=== PATIENT | male | born 2000 | race Caucasian/White ===

== ENCOUNTER 2021-08-15 15:03 | Outpatient (REF) | payer OTHER, SELFPAY ==
[2021-08-16 13:03] LABS: H Pylori Breath Test Negative (Negative)
== END 2021-08-15 15:04 | disposition home or self-care (01) ==
LOC: HO.LNP 15:03
PROVIDERS: Visit Provider Nurse Practitioner Family
DX: K21.9 Gastro-esophageal reflux disease without esophagitis (principal); K80.20 Calculus of gallbladder without cholecystitis without obstruction; K59.01 Slow transit constipation; R11.15 Cyclical vomiting syndrome unrelated to migraine
CPT/HCPCS: 83013

== ENCOUNTER → 2021-08-24 08:46 | Outpatient (REF) | payer OTHER, SELFPAY ==
--- NOTE | ~2021-08-24 | NM_ITS ---
EXAMINATION: BILIARY TRACT IMAGING STUDY WITH CCK CLINICAL INFORMATION: A 20-year-old male with abdominal pain. COMPARISON: None. TECHNIQUE: Serial gamma scintillation camera images were obtained over the abdomen for a total observation period of 60 minutes following the intravenous administration of 5 mCi Tc-99m Mebrofenin. FINDINGS: There is good concentration of activity in the liver by 5 minutes post injection. Biliary activity is visualized by 10 minutes. The gallbladder is well visualized by 20 minutes. Small bowel is well visualized by 10 minutes. At 60 minutes post radiopharmaceutical injection, a 30-minute infusion of 1.4 micrograms Sincalide was then begun and an additional 40 minutes of images were obtained. There is good emptying of the gallbladder. By the end of the study there is good clearance of activity from the liver and visualization of diffuse small bowel activity. The calculated gallbladder ejection fraction is 47% (normal gallbladder ejection fraction is greater than 35%) at 10 minutes. NM/NM hepatobiliary w pharm IMPRESSION: Visualization of the gallbladder is evidence of a patent cystic duct and strong evidence against the diagnosis of acute cholecystitis. The common bile duct is patent. Gallbladder emptying and ejection fraction are normal. Liver function appears normal.
== END ==
LOC: HO.NUCMED 08:46
PROVIDERS: Visit Provider Nurse Practitioner Family
DX: R11.10 Vomiting, unspecified (principal); K80.20 Calculus of gallbladder without cholecystitis without obstruction; K21.9 Gastro-esophageal reflux disease without esophagitis
CPT/HCPCS: 78227; A9537; J2805

== ENCOUNTER 2021-09-25 10:28 | Day surgery (SDC) | payer OTHER, SELFPAY ==
--- NOTE | 2021-09-20 10:09 | HO.ANESPROP2 ---
Documented by User: Danelle Mccoy NP 09/20/21 10:10 HPI - Anesthesia Eval Consult details Narrative: 20yo M for Upper Endoscopy and Colonoscopy [facility] Past Medical History Medical History GERD (gastroesophageal reflux disease) Rectal bleeding Social History Social History Patient Tobacco Use Status: Never used Tobacco Use of substances other than those prescribed or required for medical reasons: No Are you DNR?: No Advance Directives: No Advance Directives Information Provided: Yes Meds Allergies Allergy/AdvReac Type Severity Reaction Status Date / Time No Known Allergies Allergy Verified 09/15/21 13:12 Exam Exam Date and Time: September 20, [id number] Assessment and Plan Assessment Anesthesia Assessment: Chart Reviewed Documented by User: Carolynn Escobedo MD 09/25/21 12:57 [facility] Past Medical History Medical History GERD (gastroesophageal reflux disease) Rectal bleeding Family History Family history of problems with anesthesia: No Surgical History History of Problems with Anesthesia: No Social History Social History Patient Tobacco Use Status: Never used Tobacco Use of substances other than those prescribed or required for medical reasons: No Are you DNR?: No Advance Directives: No Advance Directives Information Provided: Yes Meds Allergies Allergy/AdvReac Type Severity Reaction Status Date / Time No Known Allergies Allergy Verified 09/15/21 13:12 Exam Airway Mallampati Class: I TM Dist: >3cm Neck ROM: Full Heart: rrr Lungs: cta Assessment and Plan Assessment Anesthesia Assessment: Anesthesia Plan Discussed and Chart Reviewed Final Anesthetic Review Family History of Problems with Anesthesia: No History of Problems with Anesthesia: No NPO: Yes ASA Class: II Final Preanesthetic Review: No Changes in Pt Med Stat, Meds/Allgs Chart Reviewed and Consent Obtained/Reviewed Patient Risk: Intermediate Procedure Risk: Intermediate Anesthetic Plan Anesthetic Plan: MAC: Disposition: Standard PACU
[2021-09-25 12:02] VITALS: BP 107/60; PULSE 79; RESP 16; TEMP 36.5; O2SAT 98
[2021-09-25] MEDS: Lactated Ringers 1,000 ML 100 ML IVCONT (12:09)
--- NOTE | 2021-09-25 12:55 | MHC.SHP ---
Pre-Procedural Eval Section A Date of Service: 09/25/21 Section B Chief Complaint: constipation,recal bleeding,reflux disease Relevant Family History (Specify if Yes): No Relevant Social History: None Present Medications: None Medical History: No relevant PMH History of Previous Operations: No relevant previous surgery Allergies: Allergies Allergy/AdvReac Type Severity Reaction Status Date / Time No Known Allergies Allergy Verified 09/15/21 13:12 Review of Systems Sugical H&P ROS: Negative: Constitution, Cardiovascular, Respiratory, Neurological, Psychiatric, Hem-Onc, Allergic/Immunologic, Gastrointestinal, Genitourinary, Musculoskeletal, Integumentary, Endocrine and Eyes/Ears/Nose/Throat Exam Surgical H&P Exam: Normal: HEENT, Normal: Heart, Normal: Lungs, Normal: Extremities, Normal: Abdomen, Normal: Skin and Normal: Neurological Plan Diagnosis/Plan: Unchanged I have reviewed the history and physical and performed a pertinent physical examination on my patient. No changes have occurred unless specified.
--- NOTE | 2021-09-25 13:50 | PM.OP ---
Brief Operative Note Date of Service: 09/25/21 Pre-op diagnosis: nausea, altered bowel habits Post-op diagnosis: same Procedure: see op note Surgeon: Rocky Anaya MD Anesthesia: MAC Was an [employer] Professor used for this Procedure?: No Estimated blood loss (mL): 0 Condition: stable Disposition: PACU
--- NOTE | 2021-09-25 13:51 | P.OP_ITS ---
Operative Note Operative Note Date of Service: 09/25/21 Narrative: Operative Information Procedure Description: EGD, Colonoscopy FLEXIBLE TRANSORAL UPPER GASTROINTESTINAL ENDOSCOPY AND COLONOSCOPY PROCEDURE NOTE UPPER ENDOSCOPY Consent: Indications for the procedure and potential complications of bleeding, perforation, reaction to medications and missed diagnosis were discussed with the patient and informed consent was obtained. Instrument: Olympus GIF H 190 J mid size upper endoscope Monitoring: Vital signs and clinical assessment, continuous EKG monitoring, Pulse oximetry, Carbon Dioxide monitoring and blood pressure monitoring were done throughout the procedure. Procedure: The patient was placed in the left lateral decubitis position and pre-procedure medications were administered and a bite block was placed. The endoscope was inserted into the mouth and advanced under direct vision to the third part of duodenum. A careful inspection was made as the upper endoscope was withdrawn including a retroflexed examination of the proximal stomach; Findings and interventions are described below. Findings: Larynx:normal Esophagus: GE junction at 40 cm, diaphragm hiatus at 40 cm, LA grade C erosive esophagitis with streaky erosions noted. bx taken from GEJ and distal/proximal esophagus in separate jars. LES was slightly lax Stomach: Patchy erythema. Biopsies were obtained. Grade 2 flap valve on retroflexed examination of the cardia. Duodenum: mild bulbar duodenitis, bx taken Intervention: Biopsies as noted above COLONOSCOPY Instrument: Olympus variable stiffness pediatric scope 190L Colonoscopy Monitoring: Vital signs and clinical assessment, continuous EKG monitoring, Pulse oximetry, Carbon Dioxide monitoring and blood pressure monitoring were done throughout the procedure. Colon withdrawal time was 9 minutes. Procedure: The patient was placed in the left lateral decubitis position and pre-procedure medications were administered. After a digital rectal examination of the ano-rectum, the video colonoscope was inserted into the rectum and advanced through the colon to the cecum/TI. The colonoscope was slowly withdrawn in a retrograde panoramic fashion and the colon mucosa was carefully examined including a retroflexed view of the rectum. Findings and interventions are described below. Procedure Difficulty:easy Findings: Terminal Ileum-normal, bx taken, nodular lymphoid hyperplasia random colon bx taken Cecum:normal Ascending Colon: normal Transverse Colon -normal Descending Colon:normal Sigmoid Colon: normal Rectum: Retroflexion with small internal hemorrhoids, grade I Anorectum - normal Colon preparation: [place] Bowel Preparation Scale Right colon; 3 Transverse colon: 3 Left colon; 2 (0 = Unprepared colon segment with mucosa not seen due to solid stool that cannot be cleared. 1 = Portion of mucosa of the colon segment seen, but other areas of the colon segment not well seen due to staining, residual stool and/or opaque liquid. 2 = Minor amount of residual staining, small fragments of stool and/or opaque liquid, but mucosa of colon segment seen well. 3 = Entire mucosa of colon segment seen well with no residual staining, small fragments of stool or opaque liquid) Impression and Post Procedure Diagnosis: Endoscopy Findings: erosive esophagitis gastritis duodenitis Colonoscopy Findings: internal hemorrhoids Plan: Await Pathology results Repeat Colonoscopy aged 45 or earlier if clinically indicated High fiber diet leaflet avoid straining at stool, epsom salts and sitz bath, anusol supps or cream [id number] taking PPI as prescribed Above findings were reviewed with the patient and relevant handouts were provided if indicated.
[2021-09-25 14:00] VITALS: BP 95/38; PULSE 86; RESP 12; TEMP 36.2; O2SAT 100
[2021-09-25 14:15] VITALS: BP 97/47; PULSE 75; RESP 16; TEMP 36.2; O2SAT 99
== END 2021-09-25 15:25 | disposition home or self-care (01) ==
PROVIDERS: Visit Provider Internal Medicine Gastroenterology
PROC: (CPT 45380; principal; 2021-09-25 11:50)
DX: K62.5 Hemorrhage of anus and rectum (principal); K64.0 First degree hemorrhoids; K59.01 Slow transit constipation; K21.9 Gastro-esophageal reflux disease without esophagitis; R11.15 Cyclical vomiting syndrome unrelated to migraine; K22.10 Ulcer of esophagus without bleeding; K29.50 Unspecified chronic gastritis without bleeding; K29.80 Duodenitis without bleeding; K80.20 Calculus of gallbladder without cholecystitis without obstruction; K44.9 Diaphragmatic hernia without obstruction or gangrene
CPT/HCPCS: 45380; 43239; 88305; 88342; J2250

== ENCOUNTER → 2021-10-13 15:10 | Outpatient (BNVA) | payer OTHER, SELFPAY | PROVIDERS: Visit Provider Nurse Practitioner Family ==

== ENCOUNTER → 2022-08-20 15:43 | Outpatient (BNVA) | payer OTHER, SELFPAY | PROVIDERS: Visit Provider Nurse Practitioner Family | DX: K21.9 Gastro-esophageal reflux disease without esophagitis (principal); K59.01 Slow transit constipation | CPT/HCPCS: 99212 ==

== ENCOUNTER 2022-10-16 13:35 | Day surgery (SDC) | payer OTHER, SELFPAY ==
--- NOTE | 2022-10-15 12:00 | HO.ANESPROP2 ---
Documented by User: Danelle Mccoy NP 10/15/22 12:00 HPI - Anesthesia Eval Consult details Narrative: 21yo M for Upper Endoscopy [facility] Past Medical History Medical History Cellulitis GERD (gastroesophageal reflux disease) Rectal bleeding Family History Family History (Updated 08/20/22 @ 15:52 by CHANDAN Bhat) Father Prostate CA Family history of problems with anesthesia: No Surgical History Surgical History History of esophagogastroduodenoscopy (EGD) History of Problems with Anesthesia: No Social History Social History Household Members: Family Patient Tobacco Use Status: Never used Tobacco Tobacco use type: Smokeless Tobacco e-Cigarette/Vaping Use: Currently Using Are you DNR?: No Advance Directives: No Advance Directives Information Provided: Yes Meds Allergies Allergy/AdvReac Type Severity Reaction Status Date / Time No Known Allergies Allergy Verified 10/11/22 12:45 Exam Exam Date and Time: October 15, 2022 1200 Assessment and Plan Assessment Anesthesia Assessment: Chart Reviewed Final Anesthetic Review Family History of Problems with Anesthesia: No History of Problems with Anesthesia: No Documented by User: Ivonne Anderson MD 10/16/22 14:03 [facility] Past Medical History Medical History Cellulitis GERD (gastroesophageal reflux disease) Rectal bleeding Family History Family History (Updated 08/20/22 @ 15:52 by CHANDAN Bhat) Father Prostate CA Surgical History Surgical History History of esophagogastroduodenoscopy (EGD) Social History Social History Household Members: Family Patient Tobacco Use Status: Never used Tobacco Tobacco use type: Smokeless Tobacco e-Cigarette/Vaping Use: Currently Using Are you DNR?: No Advance Directives: No Advance Directives Information Provided: Yes Meds Allergies Allergy/AdvReac Type Severity Reaction Status Date / Time No Known Allergies Allergy Verified 10/11/22 12:45 Exam Airway Mallampati Class: I TM Dist: >3cm Neck ROM: Full Heart: RR Lungs: CTA Assessment and Plan Final Anesthetic Review NPO: Yes ASA Class: I and II Final Preanesthetic Review: No Changes in Pt Med Stat, Meds/Allgs Chart Reviewed, Consent Obtained/Reviewed and Anes Risks/Benef Reviewed Patient Risk: Low Procedure Risk: Low Anesthetic Plan Anesthetic Plan: MAC: and Agree w/ Assess. and Plan Disposition: Standard PACU
[2022-10-16 06:31] VITALS: BMI 22.1
[2022-10-16 13:37] VITALS: BP 98/57; PULSE 77; RESP 16; TEMP 36.1; O2SAT 98
--- NOTE | 2022-10-16 13:52 | MHC.SHP ---
Pre-Procedural Eval Section A Date of Service: 10/16/22 Section B Chief Complaint: Slow transit constipation,Esophagitis, unspecified Relevant Family History (Specify if Yes): No Relevant Social History: Other (specify) (vaping) Present Medications: see Short Stay Collaborative assessment Medical History: Significant History (esophagitis) History of Previous Operations: No relevant previous surgery Allergies: Allergies Allergy/AdvReac Type Severity Reaction Status Date / Time No Known Allergies Allergy Verified 10/11/22 12:45 Review of Systems Sugical H&P ROS: Negative: Constitution, Cardiovascular, Respiratory, Neurological, Psychiatric, Hem-Onc, Allergic/Immunologic, Gastrointestinal, Genitourinary, Musculoskeletal, Integumentary, Endocrine and Eyes/Ears/Nose/Throat Exam Surgical H&P Exam: Normal: HEENT, Normal: Heart, Normal: Lungs, Normal: Extremities, Normal: Abdomen, Normal: Skin and Normal: Neurological Plan Diagnosis/Plan: Unchanged I have reviewed the history and physical and performed a pertinent physical examination on my patient. No changes have occurred unless specified. Time Spent With Patient Time: Total time managing care of this patient today ____ minutes.
[2022-10-16] MEDS: Lactated Ringers 1,000 ML 100 ML IVCONT (13:56)
--- NOTE | 2022-10-16 14:33 | W.PM.OPN ---
Operative Note Operative Note Date of Service: 10/16/22 Narrative: Procedure Description: EGD Indication: hx of esophagitis Anesthesia: MAC FLEXIBLE TRANSORAL UPPER GASTROINTESTINAL ENDOSCOPY UPPER ENDOSCOPY Consent: Indications for the procedure and potential complications of bleeding, perforation, reaction to medications and missed diagnosis were discussed with the patient and informed consent was obtained. Instrument: Olympus GIF H 190 J mid size upper endoscope Monitoring: Vital signs and clinical assessment, continuous EKG monitoring, Pulse oximetry, Carbon Dioxide monitoring and blood pressure monitoring were done throughout the procedure. Procedure: The patient was placed in the left lateral decubitis position and pre-procedure medications were administered and a bite block was placed. The endoscope was inserted into the mouth and advanced under direct vision to the third part of duodenum. A careful inspection was made as the upper endoscope was withdrawn including a retroflexed examination of the proximal stomach; Findings and interventions are described below. Findings: Larynx:normal Esophagus: GE junction at 41? cm, diaphragm hiatus at 41 cm, . LES was slightly lax, possible small island of barretts with irregular Z line, brushings and Bx taken from GEJ and distal esophagus, looked much better than last time Stomach: Normal mucosa Grade 2 flap valve on retroflexed examination of the cardia. Duodenum: normal mucosa Intervention: Biopsies as noted above, WATS brushings Impression/Findings: possible barretts PLAN: cont with PPi, reflux precautions try to stop vaping if possible
[2022-10-16 14:40] VITALS: BP 88/35; PULSE 82; RESP 16; TEMP 36.3; O2SAT 98
[2022-10-16 14:55] VITALS: BP 91/35; PULSE 84; RESP 16; TEMP 36.4; O2SAT 99
[2022-10-16 15:11] VITALS: BP 93/36; PULSE 92; RESP 16; O2SAT 99
== END 2022-10-16 15:41 | disposition home or self-care (01) ==
PROVIDERS: Visit Provider Internal Medicine Gastroenterology
PROC: 0DJ08ZZ Inspection of Upper Intestinal Tract, Via Natural or Artificial Opening Endoscopic (ICD-10-PCS; CPT 43235; principal; 2022-10-16 14:30)
DX: K20.90 Esophagitis, unspecified without bleeding (principal); K21.9 Gastro-esophageal reflux disease without esophagitis; K44.9 Diaphragmatic hernia without obstruction or gangrene; K59.01 Slow transit constipation; Z79.899 Other long term (current) drug therapy
CPT/HCPCS: 43239; 88305